=== PATIENT | female | born 1950 | race Caucasian/White ===

== ENCOUNTER 2017-11-24 16:52 | Inpatient (IN) | payer OTHER ==
[~2017-11-24] VITALS: Ht 154.9 cm; Wt 56.7 kg
[2017-11-24] MEDS ORDERED: COZAAR25 MG (17:37)
[2017-11-24] MEDS ORDERED: SYNTHROID100 MCG (17:38)
[2017-11-24] MEDS ORDERED: SYNTHROID88 MCG (17:38)
[2017-11-24] MEDS ORDERED: BUSPAR (17:39)
[2017-11-24] MEDS ORDERED: KEPPRA500 MG (17:39)
[2017-12-12] MEDS ORDERED: Intestinex CAP PO (12:39)
[2017-12-12] MEDS ORDERED: SURFAK240 M1 PO (12:56)
== END 2017-12-12 14:11 | disposition home or self-care (01) | DRG 392 ==
LOC: ER 16:52 → MEDJ 19:27
PROC: 02HV33Z Insertion of Infusion Device into Superior Vena Cava, Percutaneous Approach (ICD-10-PCS; principal; 2017-11-25)
PROC: 3E0436Z Introduction of Nutritional Substance into Central Vein, Percutaneous Approach (ICD-10-PCS; 2017-11-25)
PROC: BW25Y0Z Computerized Tomography (CT Scan) of Chest, Abdomen and Pelvis using Other Contrast, Unenhanced and Enhanced (ICD-10-PCS; 2017-11-30)
PROC: BW25Y0Z Computerized Tomography (CT Scan) of Chest, Abdomen and Pelvis using Other Contrast, Unenhanced and Enhanced (ICD-10-PCS; 2017-12-07)
DX: K57.20 Diverticulitis of large intestine with perforation and abscess without bleeding (principal); G50.0 Trigeminal neuralgia; E03.8 Other specified hypothyroidism; F41.8 Other specified anxiety disorders; I10 Essential (primary) hypertension; K44.9 Diaphragmatic hernia without obstruction or gangrene; K21.9 Gastro-esophageal reflux disease without esophagitis

== ENCOUNTER 2017-12-14 11:49 | Emergency (ER) | payer OTHER ==
[~2017-12-14] VITALS: Ht 154.9 cm; Wt 56.2 kg
[~2017-12-14 11:49] MED LIST: BUSPAR; COZAAR25 MG; Intestinex CAP PO; KEPPRA500 MG; SURFAK240 M1 PO; SYNTHROID100 MCG; SYNTHROID88 MCG
== END 2017-12-14 18:45 | disposition home or self-care (01) ==
LOC: ER 11:49
DX: K57.32 Diverticulitis of large intestine without perforation or abscess without bleeding (principal); R10.32 Left lower quadrant pain

== ENCOUNTER 2017-12-20 06:18 | Emergency (ER) | payer OTHER ==
[~2017-12-20] VITALS: Ht 154.9 cm; Wt 54.4 kg
[2017-12-20] MEDS ORDERED: AMOX1TAB5 (06:27)
== END 2017-12-20 19:04 | disposition home or self-care (01) ==
LOC: ER 06:18
DX: K29.70 Gastritis, unspecified, without bleeding (principal)

== ENCOUNTER 2018-01-04 16:51 | Emergency (ER) | payer OTHER ==
[~2018-01-04] VITALS: Ht 152.4 cm; Wt 54.0 kg
== END 2018-01-04 21:21 | disposition home or self-care (01) ==
LOC: ER 16:51
DX: R10.84 Generalized abdominal pain (principal)

== ENCOUNTER 2018-01-12 07:10 | Inpatient (IN) | payer OTHER ==
[~2018-01-12] VITALS: Ht 157.5 cm; Wt 53.1 kg
[~2018-01-12 07:10] MED LIST changes: +AMOX1TAB5; +SYMAX0.125 MG; +VITAMIN B122500 MC1
[2018-01-12] MEDS ORDERED: SYMAX0.125 MG (07:39)
[2018-02-07] MEDS ORDERED: HYOSCYAMINE0.125 M1 SL (12:03)
[2018-02-07] MEDS ORDERED: CYMBALTA60 MG PO (12:04)
[2018-02-07] MEDS ORDERED: CYMBALTA30 MG PO (12:04)
[2018-02-07] MEDS ORDERED: PANTOPRAZOLE SO40 MG PO (12:04)
[2018-02-07] MEDS ORDERED: CARAFATE1 GM PO (12:04)
[2018-02-07] MEDS ORDERED: SYNTHROID88 MCG PO (12:05)
[2018-02-07] MEDS ORDERED: FOLIC ACID1 MG PO (12:06)
[2018-02-07] MEDS ORDERED: SYNTHROID100 MCG PO (12:06)
[2018-02-07] MEDS ORDERED: VITAMIN B-121000 MC2 SL (12:07)
[2018-02-07] MEDS ORDERED: Intestinex CAP PO (12:09)
[2018-02-07] MEDS ORDERED: CLONAZEPAM0.5 MG PO (12:09)
== END 2018-02-07 13:59 | disposition home or self-care (01) | DRG 330 ==
LOC: ER 07:10 → MEDJ 19:39 → SEC-K 19:39 → SURG 19:39 → MEDI 01-13 14:18 → MEDJ 01-14 12:36 → SURG 01-26 13:40
PROVIDERS: Surgery
PROC: BW25YZZ Computerized Tomography (CT Scan) of Chest, Abdomen and Pelvis using Other Contrast (ICD-10-PCS; 2018-01-12)
PROC: 3E0436Z Introduction of Nutritional Substance into Central Vein, Percutaneous Approach (ICD-10-PCS; 2018-01-14)
PROC: 02HV33Z Insertion of Infusion Device into Superior Vena Cava, Percutaneous Approach (ICD-10-PCS; 2018-01-14)
PROC: BW25Y0Z Computerized Tomography (CT Scan) of Chest, Abdomen and Pelvis using Other Contrast, Unenhanced and Enhanced (ICD-10-PCS; 2018-01-24)
PROC: 0DJD8ZZ Inspection of Lower Intestinal Tract, Via Natural or Artificial Opening Endoscopic (ICD-10-PCS; 2018-01-26)
PROC: 3E0F7GC Introduction of Other Therapeutic Substance into Respiratory Tract, Via Natural or Artificial Opening (ICD-10-PCS; 2018-01-26)
PROC: 0DTN4ZZ Resection of Sigmoid Colon, Percutaneous Endoscopic Approach (ICD-10-PCS; principal; 2018-01-26 07:00)
PROC: B54MZZZ Ultrasonography of Right Upper Extremity Veins (ICD-10-PCS; 2018-01-29)
DX: K57.20 Diverticulitis of large intestine with perforation and abscess without bleeding (principal); L76.32 Postprocedural hematoma of skin and subcutaneous tissue following other procedure; K21.9 Gastro-esophageal reflux disease without esophagitis; K44.9 Diaphragmatic hernia without obstruction or gangrene; K29.00 Acute gastritis without bleeding; E03.8 Other specified hypothyroidism; G50.0 Trigeminal neuralgia; I10 Essential (primary) hypertension; F41.8 Other specified anxiety disorders; D50.8 Other iron deficiency anemias

== ENCOUNTER 2018-12-20 16:55 | Emergency (ER) | payer OTHER ==
[~2018-12-20] VITALS: Ht 160 cm; Wt 63.5 kg
[~2018-12-20 16:55] MED LIST changes: +CARAFATE1 GM PO; +CLONAZEPAM0.5 MG PO; +CYMBALTA30 MG PO; +CYMBALTA60 MG PO; +FOLIC ACID1 MG PO; +HYOSCYAMINE0.125 M1 SL; +PANTOPRAZOLE SO40 MG PO; +SYNTHROID100 MCG PO; +SYNTHROID88 MCG PO; +VITAMIN B-121000 MC2 SL
== END 2018-12-20 22:51 | disposition home or self-care (01) ==
LOC: ER 16:55
DX: K52.89 Other specified noninfective gastroenteritis and colitis (principal)

== ENCOUNTER 2019-03-15 06:15 | Day surgery (SDC) | payer OTHER | END 2019-03-15 12:00 | disposition home or self-care (01) | LOC: AMB-ENDOS 06:15 | DX: K57.30 Diverticulosis of large intestine without perforation or abscess without bleeding (principal); K63.89 Other specified diseases of intestine ==

== ENCOUNTER 2022-08-21 16:54 | Emergency (ER) | payer OTHER ==
[~2022-08-21] VITALS: Ht 154.9 cm; Wt 55.3 kg
[2022-08-21] MEDS ORDERED: VISTARIL25 MG PO (18:48)
== END 2022-08-21 18:55 | disposition home or self-care (01) ==
LOC: ER 16:54
DX: F41.8 Other specified anxiety disorders (principal); I10 Essential (primary) hypertension; K57.92 Diverticulitis of intestine, part unspecified, without perforation or abscess without bleeding; E05.80 Other thyrotoxicosis without thyrotoxic crisis or storm; Z88.2 Allergy status to sulfonamides

== ENCOUNTER → 2025-04-26 | Emergency (ER) | payer OTHER ==
[~2025-04-26] VITALS: Ht 154.9 cm; Wt 54.4 kg
[~2025-04-26] MED LIST changes: +KETOROLAC TROMETHAMINE 60 MG VIAL IM ONE; +NORFLEX100MG PO; +VISTARIL25 MG PO
== END | disposition home or self-care (01) ==
LOC: ER 18:47
DX: M62.830 Muscle spasm of back (principal); M54.89 Other dorsalgia; M51.369 Other intervertebral disc degeneration, lumbar region without mention of lumbar back pain or lower extremity pain; M85.88 Other specified disorders of bone density and structure, other site; Z88.2 Allergy status to sulfonamides
CPT/HCPCS: 72100; 96372; 99283; J1885